=== PATIENT | male | born 1955 | race Caucasian/White ===

== ENCOUNTER 2020-06-23 12:23 | Day surgery (SDC) | payer BC, OTHER, SELFPAY ==
[2020-06-23] VITALS (8 sets, daily range): BP systolic 121–136; BP diastolic 70–87; PULSE 48–58; RESP 12–93; TEMP 35.6–36.9; O2SAT 13–99; BMI 26.6
[2020-06-23] MEDS: LACTATED RINGERS 1,000 ML 200 ML IV (12:57)
--- NOTE | 2020-06-23 13:53 | PM.OP.ENDO ---
Operative Date/Time/Diagnoses Date of procedure: 06/23/20 Time of procedure: 13:53 Pre-op diagnosis: screening colonoscopy Post-op diagnosis: same Procedure & Clinicians Study performed: Colonoscopy Same procedure as scheduled: Yes Indications: 64-year-old man prior adenomatous polyp removed 5 years ago presents screening Surgeon: Vj Condon Procedure Notes SCOAP/Timeout: Performed Procedure in detail: Patient placed in left lateral recumbent position. Time out was performed. Procedural sedation was administered with Versed and Fentanyl. Examination began with a thorough inspection of the perianal area there was no evidence of fissures, fistulae, external hemorrhoids or cutaneous malignancy. The colonoscopy scope was then placed into the rectum the the lumen was insufflated with air. The scope was carefully advanced forward. Ultimately the cecum was intubated and confirmed by identification of the ileocecal valve and the confluence of the taenia. The scope was then slowly withdrawn examining colon thoroughly in all directions. In the rectum the rectal columns were identified and retroflexion of the scope was performed for inspection of the distal rectum and anal canal. The colonoscopy was notable for the followin. Quality of the preparation-fair 2. No masses or polyps 3. Sigmoid diverticulosis Scope withdrawal time: 7 Sedation minutes: 21 Findings: diverticulosis Specimen(s): none sent Complications: none Impression: Diverticulosis Post-procedure Recommendations: Colonscopy in 10 years and High fiber diet Disposition: same day surgery
--- NOTE | 2020-06-23 13:54 | PM.HP.1 ---
History of Present Illness History of Present Illness Date Patient Seen: 06/23/20 Time Patient Seen: 13:54 Chief complaint: SCREENING COLONOSCOPY Narrative: The patient presents for colorectal sreening. The previous colonoscopy 5 years ago that was significant for an adenomatous polyp which was resected.. No personal or family history of colon cancer. On further history denies any recent gastrointestinal symptoms. No nausea, vomiting, abdominal pain, loss of appetite, unexplained weight loss, change in bowel habits, diarrhea, constipation, melena, hematochezia, or bright red blood per rectum. Patient History Medical History Adenomatous polyp (Acute) TIA (transient ischemic attack) (Acute) Family & Social History Social History: household members spouse Tobacco & Substance use: Smoking Status Never smoker alcohol intake frequency holiday/special occasion Substance Use Type does not use Meds Home Medications and Allergies Home Medications Medication Instructions Recorded Confirmed Type calcium citrate 250 mg PO 4-6XD 06/23/20 06/23/20 History diclofenac sodium 1 applic TOPICAL BID 06/23/20 06/23/20 History Allergies Allergy/AdvReac Type Severity Reaction Status Date / Time No Known Drug Allergies Allergy Verified 06/23/20 12:47 Review of Systems Review of Systems Narrative: A 10 point review of systems is negative except as noted in the HPI Exam Vital Signs (past 8 hours): - 06/23/20 12:51 Temperature 98.5 F Pulse Rate 54 L Respiratory Rate 16 Blood Pressure 131/74 Pulse Oximetry 99 Oxygen Delivery Method Room Air Narrative Exam Narrative: General-no acute distress, well nourished HEENT-moist mucous membranes, no scleral icterus Neck-supple, no lymphadenopathy Chest- non labored respirations, clear to auscultation bilaterally Cardiac-regular rate no peripheral edema Abdomen-soft, nontender, non distended Extremities-warm, well perfused Neurological-alert and oriented, no focal deficits Assessment & Plan Assessment & Plan narrative: The patient requires colorectal screening and colonoscopy is recommended. Technical details were discussed. Risks, benefits, alternatives explained. Risks including but not limited to myocardial infarction, aspiration, bleeding, pain, missed lesion, incomplete examination, need for further radiographic studies, colonic perforation, and need for major abdominal surgery were discussed. All questions were answered to their satisfaction, and they are in agreement with this plan. COVID-19 COVID-19 status: Negative
[2020-06-23] MEDS: MIDAZOLAM 5 MG/5 ML VIAL IV (14:20)
[2020-06-23] MEDS: fentaNYL 250 MCG/5 ML INJ IV ×2 (14:20)
--- NOTE | 2020-06-23 14:38 | SUR.PHASEI ---
Patient tolerating po. Denies pain. Abd soft..
--- NOTE | 2020-06-23 15:26 | SUR.PHASEII ---
Assumed care of pt for d/c teaching, brought in, both voiced an understanding of instructions. Pt left when dressed and left in stable condition.
== END 2020-06-23 15:10 | disposition home or self-care (01) ==
PROVIDERS: PCP Family Medicine; Referring Provider Family Medicine; Visit Provider Surgery
PROC: 0DJD8ZZ Inspection of Lower Intestinal Tract, Via Natural or Artificial Opening Endoscopic (ICD-10-PCS; CPT 45378; principal; 2020-06-23 13:45)
DX: Z12.11 Encounter for screening for malignant neoplasm of colon (principal); Z86.010 Personal history of colon polyps; Z86.73 Personal history of transient ischemic attack (TIA), and cerebral infarction without residual deficits; K57.30 Diverticulosis of large intestine without perforation or abscess without bleeding
CPT/HCPCS: 45378; 99152; J2250; J3010